=== PATIENT | female | born 1975 | race Caucasian/White ===

== ENCOUNTER 2022-07-26 18:45 | Outpatient (REF) | payer BC, SELFPAY ==
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
== END 2022-07-26 18:46 | disposition home or self-care (01) ==
LOC: HO.MRI 18:45
PROVIDERS: Visit Provider Psychiatry & Neurology Neurology
DX: M54.2 Cervicalgia (principal); R25.2 Cramp and spasm; R20.2 Paresthesia of skin
CPT/HCPCS: 72141

== ENCOUNTER 2022-08-14 07:48 | Outpatient (REF) | payer BC, SELFPAY ==
[2022-08-14 08:24] LABS: MANUAL DIFF FLAG NO
[2022-08-14 09:50] LABS: Basophils Absolute Auto 0.1 X10*3/uL (0.0-0.2); Basophils Percent Auto 1.3 % (0-2); Eosinophils Absolute Auto 0.3 X10*3/uL (0.0-0.4); Hematocrit 40.3 % (37.0-47.0); Hemoglobin 12.9 g/dl (12.0-16.0); Imm Gran Abs Auto 0.01 X10*3/uL (0.00-0.03); Imm Gran Pct Auto 0.1 % (0.0-0.4); Lymphocytes Percent Auto 28.2 % (20-40); Mean Corpuscular Hemoglobin 29.9 pg (27.0-33.0); Mean Corpuscular Volume 93.3 fL (80.0-98.0); Mean Platelet Volume 11.2 fL (9.4-12.3); Monocytes Absolute Auto 0.5 X10*3/uL (0.1-1.2); Monocytes Percent Auto 6.8 % (2-11); Neutrophils Absolute Auto 4.3 x10*3/uL (2.0-8.3); Neutrophils Percent Auto 59.6 % (45-73); Platelet Count 204 X10*3/uL (160-400); Red Blood Count 4.32 X10*6/uL (4.20-5.50); Red Cell Distribution Width 11.9 % (11.0-16.0); White Blood Count 7.2 X10*3/uL (4.8-10.8)
[2022-08-14 10:26] LABS: Erythrocyte Sedimentation Rate 2 MM/HR (0-20)
[2022-08-14 10:34] LABS: Alanine Aminotransferase 8 U/L (0-31); Albumin Level 4.2 g/dL (3.5-5.0); Alkaline Phosphatase 57 U/L (39-117); Anion Gap 13 (12-20); Aspartate Amino Transferase 18 U/L (5-31); Bilirubin Direct 0.2 mg/dL (0.0-0.5); Bilirubin Total 0.6 mg/dL (0.0-1.0); Blood Urea Nitrogen 10 mg/dL (9-16); Calcium 8.9 mg/dL (8.4-10.2); Carbon Dioxide 27 mmol/L (22-29); Chloride 103 mmol/L (96-108); Estimated Glomerular Filt Rate > 60; Glucose Random 86 mg/dL (60-115); Potassium 4.2 mmol/L (3.3-5.1); Sodium 139 mmol/L (135-145); Total Protein 6.9 g/dL (6.5-8.0)
[2022-08-14 10:41] LABS: TSH reflex Free T4 4.42 uIU/mL (0.32-4.0)
[2022-08-14 11:17] LABS: Free T4 (Free Thyroxine) 0.91 ng/dL (0.71-1.85)
[2022-08-18 14:36] LABS: CK-BB None Detected (None Detected); CK-MB 0 % (<5); CK-MM 100 % (95-100); Creatine Kinase,Total,Serum 71 U/L (29-143)
== END 2022-08-14 07:49 | disposition home or self-care (01) ==
LOC: HO.LAB 07:48
PROVIDERS: PCP Internal Medicine; Visit Provider Psychiatry & Neurology Neurology
DX: R20.2 Paresthesia of skin (principal); R25.2 Cramp and spasm
CPT/HCPCS: 36415; 80048; 80076; 82550; 82552; 84439; 84443; 85025; 85652

== ENCOUNTER 2022-10-13 12:20 | Outpatient (REF) | payer BC, SELFPAY ==
[2022-10-13 14:53] LABS: Alanine Aminotransferase 11 U/L (0-31); Albumin Level 4.2 g/dL (3.5-5.0); Alkaline Phosphatase 73 U/L (39-117); Anion Gap 9 (12-20); Aspartate Amino Transferase 17 U/L (5-31); Bilirubin Total 0.5 mg/dL (0.0-1.0); Blood Urea Nitrogen 13 mg/dL (9-16); Carbon Dioxide 31 mmol/L (22-29); Chloride 106 mmol/L (96-108); Estimated Glomerular Filt Rate > 60; Ferritin 24 ng/mL (10-250); Glucose Random 83 mg/dL (60-115); Iron 109 mcg/dL (30-160); Percent Iron Saturation 35 % (15-50); Potassium 4.1 mmol/L (3.3-5.1); Sodium 142 mmol/L (135-145); Total Iron Binding Capacity 314 mcg/dL (228-428); Total Protein 6.9 g/dL (6.5-8.0); Unsaturated Iron Binding 205 ug/dL; Vitamin D 25-OH Total 20.6 ng/mL (>30)
[2022-10-13 15:05] LABS: Folate 13.1 ng/mL (> or = 4.0); Vitamin B12 362 pg/mL (200-900)
== END 2022-10-13 12:21 | disposition home or self-care (01) ==
LOC: HO.LAB 12:20
PROVIDERS: PCP Internal Medicine; Referring Provider Internal Medicine; Visit Provider Internal Medicine
DX: R10.9 Unspecified abdominal pain (principal); R14.0 Abdominal distension (gaseous)
CPT/HCPCS: 36415; 80053; 82306; 82607; 82728; 82746; 83540

== ENCOUNTER 2022-12-08 08:12 | Outpatient (REF) | payer BC, SELFPAY ==
--- NOTE | ~2022-12-08 | US_ITS ---
EXAMINATION: US ABDOMEN COMPLETE CLINICAL INFORMATION: Nausea. COMPARISON: None TECHNIQUE: Real-time imaging of the abdominal viscera. FINDINGS: PANCREAS: Normal. ABDOMINAL AORTA: The proximal, mid, and distal segments are normal in caliber. INFERIOR VENA CAVA: Visualized portions are normal. LIVER: Normal. The liver is normal in size. The liver contour is normal. Parenchymal echogenicity is normal. No focal hepatic lesion. There is no intrahepatic biliary duct dilatation seen. GALLBLADDER: A gallbladder polyp is noted measuring 6 mm in size. The gallbladder is physiologically distended without evidence of stones, sludge, wall thickening or pericholecystic fluid. COMMON BILE DUCT: Normal in caliber measuring 0.5 cm in diameter. RIGHT KIDNEY: Normal. No hydronephrosis. No renal calculi or focal parenchymal lesions. The kidney measures 10.9 cm in maximum dimension. LEFT KIDNEY: Normal. No hydronephrosis. No renal calculi or focal parenchymal lesions. The kidney measures 10.5 cm in maximum dimension. SPLEEN: Normal. The spleen measures 9.7 cm in maximum dimension. FREE FLUID: None. US/US abdomen complete IMPRESSION: 6 mm size gallbladder polyp. In the low risk category, no follow-up is recommended for polyps of 6 mm or smaller; follow-up US at 12 months is recommended for polyps measuring 7?9 mm; follow-up US at 6, 12, 24, and 36 months is recommended for polyps measuring 10?14 mm; and surgical consultation is recommended for polyps of 15 mm or larger
== END 2022-12-08 08:13 | disposition home or self-care (01) ==
LOC: HO.US 08:12
PROVIDERS: Visit Provider Internal Medicine
DX: R10.9 Unspecified abdominal pain (principal); R11.0 Nausea
CPT/HCPCS: 76700

== ENCOUNTER 2022-12-10 08:06 | Outpatient (REF) | payer BC, SELFPAY ==
--- NOTE | ~2022-12-10 | FL_ITS ---
EXAMINATION: FL BARIUM SWALLOW CLINICAL INFORMATION: Dysphagia COMPARISON: None TECHNIQUE: Barium swallow examination is performed using fluoroscopic evaluation in addition to multiple fluoroscopic spot views. The patient is imaged both upright and prone and using both thick and thin sulfate along with effervescent granules. Barium tablet was administered. Fluoroscopy time: 0.7 minutes DAP: 2.8 Gycm2 Images: 47 FINDINGS: The swallowing mechanism is normal. No aspiration or penetration. Esophageal motility is normal. There is gastroesophageal reflux. No hernia is seen. No mass or stricture. FL/FL barium swallow IMPRESSION: Gastroesophageal reflux.
== END 2022-12-10 08:07 | disposition home or self-care (01) ==
LOC: HO.XRAY 08:06
PROVIDERS: PCP Internal Medicine; Visit Provider Internal Medicine
DX: R13.10 Dysphagia, unspecified (principal)
CPT/HCPCS: 74220

== ENCOUNTER 2023-04-28 06:11 | Day surgery (SDC) | payer BC, SELFPAY ==
[2023-04-25 09:41] VITALS: BMI 24.9
[2023-04-28 06:23] VITALS: BP 115/76; PULSE 74; RESP 16; TEMP 36.4; O2SAT 96; BMI 25.9
--- NOTE | 2023-04-28 07:43 | MHC.SHP ---
Pre-Procedural Eval Section A Date of Service: 04/28/23 Section B Chief Complaint: Dysphagia, abd pain and distension Details of Present Illness: Reports resolution of dysphagia since discontinuing gabapentin. Still has intermittent postprandial epigastric pain. PMH: Anxiety Depression Fibromyalgia Frequent headaches Hypothyroidism Neck pain Family History Father High blood pressure Mother Cancer Heart disease Relevant Family History (Specify if Yes): No Relevant Social History: None Present Medications: see Short Stay Collaborative assessment Allergies: Allergies Allergy/AdvReac Type Severity Reaction Status Date / Time No Known Allergies Allergy Verified 10/13/22 12:37 Review of Systems Review of Systems Comment: 10 point ROS negative Exam Exam Comment: Gen appear: NAD HEENT: nonicteric CVS: S1 S2 Chest: CTA ABd: soft, NT, ND Ext: no edema Neuro A/Ox3 Plan Diagnosis/Plan: Unchanged I have reviewed the history and physical and performed a pertinent physical examination on my patient. No changes have occurred unless specified. Time Spent With Patient Time: Total time managing care of this patient today ____ minutes.
--- NOTE | 2023-04-28 07:46 | W.PM.OPN ---
Operative Note Operative Note Date of Service: 04/28/23 Narrative: Procedure:?Esophagogastroduodenoscopy and colonoscopy Endoscopist:?Marian Alcazar MD Indication:?Abd pain, CRC screening Anesthesia Provider:?Dr Arabella Aguayo Anesthesia Type:?MAC Instrument:?Olympus GIF-H190, PCF-190L EGD Procedure:?? The procedure, indications, preparation and potential complications were reviewed with the patient, who indicated understanding and gave written informed consent to proceed. A administrative support specialist helped with the encounter. A physical exam was performed. The endoscope was introduced through the mouth, and advanced to the second part of duodenum. The mucosa was carefully examined on slow withdrawal of the endoscope. The patient tolerated the procedure well. There were no immediate complications.? EGD Findings:? Esophagus:? Normal mucosa noted in the entire esophagus. The Z line was at 40 cm.? Stomach:? Normal gastric mucosa. Retroflexion performed in the fundus. Random cold forceps biopsies were taken to rule out H pylori. Duodenum:? Normal duodenal mucosa to the extent visualised. Cold forceps biopsies were taken from the duodenal bulb and second portion of the duodenum to rule out celiac sprue. Colonoscopy Procedure:? The patient was then turned for the colonoscopy. A digital rectal exam was performed which was abnormal for external hemorrhoids.? A distal attachment cap was affixed to the tip of the scope and the colonoscope was then inserted through the anus and advanced through the colon to the hepatic flexure.? Mucosa was carefully examined under high definition white light as the instrument was slowly withdrawn in a retrograde panoramic fashion. Retroflexion was performed in rectum. The procedure was not difficult. There were no immediate obvious complications. The quality of the prep was BBPS: 0+1+2 = inadequate Limitations: Poor prep Findings: Mucosa: Fecal sediment in the right side of the colon precluded complete visualisation despite extensive flushing and suctioning for 15 minutes. Descending, sigmoid colon and rectum mucosa was within normal limits. Protruding lesions: Medium internal hemorrhoids without stigmata of recent bleeding. Impression: 1. Normal esophagus 2. Normal stomach (biopsy) 3. Normal duodenum (biopsy) 4. Poor prep 5. Internal and external hemorrhoids Recommendations:?? Follow biopsy results, office will call or send a letter within 7-10 days.? Repeat colonoscopy within 6-12 months due to poor prep Findings were reviewed with the patient.
[2023-04-28 08:25] VITALS: BP 110/89; PULSE 67; RESP 17; TEMP 36.3; O2SAT 100
[2023-04-28 08:40] VITALS: BP 122/76; PULSE 73; RESP 18; TEMP 37.1; O2SAT 99
--- NOTE | 2023-04-28 13:24 | HO.ANESPROP2 ---
[facility] Active Problems Active Problems: All Active Problems (Updated 10/14/22 @ 13:54 by Marian Alcazar MD) Paresthesias (Acute) Muscle cramps (Acute) Dysphagia (Acute) Nausea (Acute) Abdominal cramping (Acute) Bloating (Acute) Colon cancer screening (Acute) Neck pain (Acute) Depression (Acute) Anxiety (Acute) Hypothyroidism (Acute) Fibromyalgia (Acute) Past Medical History Medical History (Updated 10/14/22 @ 13:54 by Marian Alcazar MD) Anxiety Depression Fibromyalgia Frequent headaches Hypothyroidism Neck pain Family History Family History Father High blood pressure Mother Cancer Heart disease Family history of problems with anesthesia: No Surgical History Surgical History (Updated 04/25/23 @ 09:40 by Ana Welsh RN) Surgical history unknown History of Problems with Anesthesia: No Social History Social History Household Members: Spouse and Children Housing: House Alcohol intake: former Patient Tobacco Use Status: Former Tobacco user Tobacco use type: Cigarette Meds Allergies Allergy/AdvReac Type Severity Reaction Status Date / Time No Known Allergies Allergy Verified 10/13/22 12:37 Home Medications Medication Instructions Recorded Confirmed Last Taken Type levothyroxine 13 mcg capsule 13 mcg PO DAILY 06/08/22 04/25/23 Unknown History paroxetine HCl 25 mg 25 mg PO DAILY 06/08/22 08/17/22 Unknown History tablet,extended release 24 hr (Paxil CR) progesterone micronized 100 mg 100 mg PO QAM 06/08/22 04/25/23 Unknown History capsule paroxetine HCl 40 mg tablet 40 mg PO QAM 04/25/23 04/25/23 Unknown History Exam Exam Date and Time: April 28, 2023 1324 Height,Weight and Vital Signs: Height 5 ft 5.5 in Weight 71.668 kg Last Vital Signs Temp 98.7 F 04/28/23 08:40 Pulse 73 04/28/23 08:40 Resp 18 04/28/23 08:40 BP 122/76 04/28/23 08:40 Pulse Ox 99 04/28/23 08:40 O2 Del Method Room Air 04/28/23 08:40 Airway Mallampati Class: I TM Dist: >3cm Neck ROM: Full Loose/Missing/Broken Teeth: No Heart: rr Lungs: cta Assessment and Plan Assessment Anesthesia Assessment: Anesthesia Plan Discussed and Chart Reviewed Final Anesthetic Review Family History of Problems with Anesthesia: No History of Problems with Anesthesia: No NPO: Yes ASA Class: II Final Preanesthetic Review: No Changes in Pt Med Stat, Meds/Allgs Chart Reviewed, Consent Obtained/Reviewed and Anes Risks/Benef Reviewed Patient Risk: Low Procedure Risk: Low Anesthetic Plan Anesthetic Plan: MAC: Disposition: Standard PACU
== END 2023-04-28 09:20 | disposition home or self-care (01) ==
PROVIDERS: PCP Internal Medicine; Visit Provider Internal Medicine
PROC: (CPT 45378; principal; 2023-04-28 07:30)
DX: Z12.11 Encounter for screening for malignant neoplasm of colon (principal); K64.4 Residual hemorrhoidal skin tags; K64.8 Other hemorrhoids; R10.9 Unspecified abdominal pain; R13.10 Dysphagia, unspecified; G35 Multiple sclerosis; Z53.8 Procedure and treatment not carried out for other reasons
CPT/HCPCS: 45378; 43239; 88305; 88342

== ENCOUNTER 2023-05-16 09:46 | Outpatient (AMB) | payer BC, SELFPAY ==
[2023-05-16 09:51] VITALS: BP 114/74; PULSE 69; BMI 26.7
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
== END 2023-05-16 10:30 | disposition home or self-care (01) ==
PROVIDERS: PCP Internal Medicine; Visit Provider Internal Medicine
DX: R11.0 Nausea (principal); R14.0 Abdominal distension (gaseous); Z12.11 Encounter for screening for malignant neoplasm of colon; K30 Functional dyspepsia
CPT/HCPCS: 99214

== ENCOUNTER → 2023-05-16 09:46 | Outpatient (BNVA) | payer BC, SELFPAY | PROVIDERS: PCP Internal Medicine; Visit Provider Internal Medicine ==

== ENCOUNTER 2024-01-04 14:03 | Outpatient (AMB) | payer BC, SELFPAY ==
--- NOTE | 2024-01-04 14:13 | A.OFFVIS_ITS ---
Intake Vital Signs 01/04/24 14:16 Height 5 ft 5.5 in Weight 156 lb 8.451 oz BMI 25.6 BP 134/71 Blood Pressure Location Lt brachial Position Sitting Pulse 66 Intake Visit Reasons: follow up Intake Note: Santana presents in the office as a follow up. CC: She states that she is not having any new concerns at this time. She states that she does believe that she has IBS. Allergies No Known Allergies Allergy (Verified 01/04/24 14:16) HPI HPI Comments History of Present Illness Details This is a 47-year-old female who is currently getting investigated for multiple sclerosis to Neurology, who has been referred to our office for gastrointestinal complaints as below. 09/23/23: Patient reports that for the past 6 months, she has had a sensation of food getting stuck in her mid chest with frequent regurgitation. Notices more with certain textures such as raw fruits and vegetables, meat. Does not notice it as much with soft foods such as cereal. No room issues with liquids. Denies any unintentional weight loss with this. This is also associated with abdominal cramping and bloating. Bloating and cramping improves with passing flatus or belching. Abdominal cramping is described as twisting of upper abdomen. Pain, nausea and regurgitation as worse with food intake. Patient does not wake up with the symptoms, but develops them along the day. Bowel movements are regular, albeit has frequent constipation now, compared to before. Former smoker. Quit alcohol more than 20 years ago. No NSAID use. Family history: Maternal grandfather had stomach cancer and colon cancer at 60s. 04/28/23: EGD/colo: 1. Normal esophagus 2. Normal stomach (biopsy) 3. Normal duodenum (biopsy) 4. Poor prep 5. Internal and external hemorrhoids Recommendations:?? * Follow biopsy results, office will call or send a letter within 7-10 days.? * Repeat colonoscopy within 6-12 months due to poor prep Path: A.? Duodenum, biopsy:? Duodenal mucosa within normal limits; fragment of poorly preserved gastric tissue. B.? Stomach, random, biopsy:? Antral-type and oxyntic mucosa with mild chronic inactive inflammation; no Helicobacter organisms seen. 05/16/23: Reports resolution of swallowing difficulty with discontinuing gabapentin however continues to have feeling of early fullness and bloating after meals. Has epigastric discomfort that is not quite like heartburn and has not improved with omeprazole or tums either. Reports undergoing a very stressful time these last few months due to legal issues at school. Has not been able to function as she used to due to high leve ls of stress and anxiety. On Paroxetine through her PCP and seeing a therapist. Also scheduled to see a psychiatrist soon. 01/04/24: Here for follow up. In a much better headspace now since the start of this year. 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 IBS sx are there but able to cope better. GERD better with omeprazole. Repeat colo pending. [facility] Medical History Frequent headaches Neck pain Depression Anxiety Hypothyroidism Fibromyalgia Surgical History Surgical history unknown Family History Father High blood pressure Mother Cancer Heart disease Social History Household Members: Spouse and Children Housing: House Alcohol intake: former Patient Tobacco Use Status: Former Tobacco user Tobacco use type: Cigarette Review of Systems Const All systems reviewed & are unremarkable except as noted in HPI and below Physical Exam Vital Signs: Last Vital Signs Pulse 66 01/04/24 14:16 BP 134/71 01/04/24 14:16 BMI result Body Mass Index 25.6 NAD Nonicteric Speaking in full sentences ABd nondistended A/Ox3 normal gait Assessment & Plan Assessment & Plan (1) Nausea: Code(s): R11.0 - Nausea (2) Bloating: Code(s): R14.0 - Abdominal distension (gaseous) (3) Colon cancer screening: Code(s): Z12.11 - Encounter for screening for malignant neoplasm of colon (4) Functional dyspepsia: Code(s): K30 - Functional dyspepsia Plan IBS and functional dyspepsia much improved since better stress and anxiety management. Most of the days are sx free. Cont to see therapist. For colorectal cancer screening, due to poor prep, needs to be rebooked. Pt willing to mary this today. Split PEG prep prescribed and handout provided as well. Follow up after colo. Medications: New peg 3350-electrolytes 236-22.74-6.74 -5.86 gram (Golytely) as per split prep instructions, until fecal effluent is clear 240 mL PO Q10M 4,000 mL 0RF colonoscopy Coding Level of Care Code Est Pt Level 4 (42878) Diagnoses Nausea R11.0 Bloating R14.0 Colon cancer screening Z12.11 Functional dyspepsia K30
[2024-01-04 14:16] VITALS: BP 134/71; PULSE 66; BMI 25.6
== END 2024-01-04 14:38 | disposition home or self-care (01) ==
PROVIDERS: PCP Internal Medicine; Visit Provider Internal Medicine
DX: R11.0 Nausea (principal); R14.0 Abdominal distension (gaseous); Z12.11 Encounter for screening for malignant neoplasm of colon; K30 Functional dyspepsia
CPT/HCPCS: 99214

== ENCOUNTER → 2024-01-04 14:03 | Outpatient (BNVA) | payer BC, SELFPAY | PROVIDERS: PCP Internal Medicine; Visit Provider Internal Medicine ==

== ENCOUNTER 2024-07-03 06:33 | Day surgery (SDC) | payer BC, SELFPAY ==
[2024-06-29 07:11] VITALS: BMI 25.6
--- NOTE | 2024-07-02 09:15 | P.CONAN_ITS ---
HPI - Anesthesia Eval Consult details Narrative: 49yo F for Colonoscopy PMFSH Active Problems Active Problems: All Active Problems Functional dyspepsia (Acute) Paresthesias (Acute) Muscle cramps (Acute) Dysphagia (Acute) Nausea (Acute) Abdominal cramping (Acute) Bloating (Acute) Colon cancer screening (Acute) Neck pain (Acute) Depression (Acute) Anxiety (Acute) Hypothyroidism (Acute) Fibromyalgia (Acute) Past Medical History Medical History Frequent headaches Neck pain Depression Anxiety Hypothyroidism Fibromyalgia Family History Family History Father High blood pressure Mother Cancer Heart disease Family history of problems with anesthesia: No Surgical History Surgical History Hx of tonsillectomy History of surgical removal of pilonidal cyst History of dental surgery H/O section H/O colonoscopy History of Problems with Anesthesia: No Social History Social History Household Members: Spouse and Children Housing: House Are you a primary child care centre director to a significant other at home: No Do you presently have visiting nurse or other home services: No Alcohol intake: former Patient Tobacco Use Status: Former Tobacco user Tobacco use type: Cigarette Years Smoked: 25 Smoked in Last 30 Days: No Use of substances other than those prescribed or required for medical reasons: Yes Substance Use Frequency: Daily Have you been hit, kicked, punched, or otherwise hurt by someone within the past year? If so, by whom?: No Are you DNR?: No Advance Directives: No Advance Directives Information Provided: Yes Recently lost weight without trying: No How much weight loss: Not applicable Eating poorly because of decreased appetite: No Nutrition screen score: 0 Nutrition Risks: No Nutritional Risk Patient : No : No Poor oral hygiene: No Meds Allergies Allergy/AdvReac Type Severity Reaction Status Date / Time No Known Allergies Allergy Verified 07/03/24 06:49 Home Medications ?Medication ?Instructions ?Recorded ?Confirmed ?Last Taken ?Type paroxetine HCl 40 mg tablet 40 mg PO QAM 04/25/23 07/03/24 Unknown History ibuprofen 600 mg tablet 200 mg PO NEEDED 01/04/24 07/03/24 06/26/24 History lorazepam 0.5 mg tablet 0.5 mg PO DAILY 01/04/24 07/03/24 06/19/24 History omeprazole magnesium 20 mg 20 mg PO DAILY 01/04/24 07/03/24 Unknown History capsule,delayed release paroxetine HCl 10 mg tablet 10 mg PO DAILY 01/04/24 07/03/24 Unknown History Exam Height,Weight and Vital Signs: Height 5 ft 5.5 in Weight 70.76 kg Assessment and Plan Assessment Anesthesia Assessment: Chart Reviewed Final Anesthetic Review Family History of Problems with Anesthesia: No History of Problems with Anesthesia: No
[2024-07-03 07:12] VITALS: BP 125/55; PULSE 61; RESP 16; TEMP 36.4; O2SAT 97; BMI 26.2
--- NOTE | 2024-07-03 07:23 | MHC.SHP ---
Pre-Procedural Eval Section A - 24 Hr Update-Section A only Date of Service: 07/03/24 Section B - Complete if H&P > 30 days Chief Complaint: Colon cancer screening Relevant Family History (Specify if Yes): Yes Relevant Social History: Tobacco Use (Former smoker) Present Medications: see Short Stay Collaborative assessment Medical History: Significant History (Frequent headaches Neck pain Depression Anxiety Hypothyroidism Fibromyalgia) History of Previous Operations: Relevant previous surgery/procedure and date(s) (History of , history of colonoscopy) Allergies: Allergies Allergy/AdvReac Type Severity Reaction Status Date / Time No Known Allergies Allergy Verified 07/03/24 06:49 Review of Systems Sugical H&P ROS: Negative: Constitution, Cardiovascular, Respiratory and Gastrointestinal Exam Surgical H&P Exam: Normal: Heart, Normal: Lungs, Normal: Extremities and Normal: Abdomen Plan Diagnosis/Plan: Unchanged I have reviewed the history and physical and performed a pertinent physical examination on my patient. No changes have occurred unless specified. Time Spent With Patient Time: Total time managing care of this patient today ____ minutes.
[2024-07-03] MEDS: Lactated Ringers 1,000 ML 100 ML IVCONT (07:27)
--- NOTE | 2024-07-03 07:36 | PC.NURSE ---
Patient in preop. Voiced she takes herbal supplement called hormone harmony. Ingredients list shared with Dr. Self. May proceed with procedure at this time.
--- NOTE | 2024-07-03 07:57 | P.CONAN_ITS ---
[facility] Active Problems Active Problems: All Active Problems Functional dyspepsia (Acute) Colon cancer screening (Acute) Bloating (Acute) Abdominal cramping (Acute) Nausea (Acute) Dysphagia (Acute) Muscle cramps (Acute) Paresthesias (Acute) Neck pain (Acute) Depression (Acute) Anxiety (Acute) Hypothyroidism (Acute) Fibromyalgia (Acute) Past Medical History Medical History Frequent headaches Neck pain Depression Anxiety Hypothyroidism Fibromyalgia Functional capacity: independent ambulation Patient : No Family History Family History Father High blood pressure Mother Cancer Heart disease Family history of problems with anesthesia: No Surgical History Surgical History Hx of tonsillectomy History of surgical removal of pilonidal cyst History of dental surgery H/O section H/O colonoscopy History of Problems with Anesthesia: No Social History Social History Household Members: Spouse and Children Housing: House Are you a primary direct care supervisor to a significant other at home: No Do you presently have visiting nurse or other home services: No Alcohol intake: former Patient Tobacco Use Status: Former Tobacco user Tobacco use type: Cigarette Years Smoked: 25 Smoked in Last 30 Days: No Use of substances other than those prescribed or required for medical reasons: Yes Substance Use Frequency: Daily Have you been hit, kicked, punched, or otherwise hurt by someone within the past year? If so, by whom?: No Are you DNR?: No Advance Directives: No Advance Directives Information Provided: Yes Recently lost weight without trying: No How much weight loss: Not applicable Eating poorly because of decreased appetite: No Nutrition screen score: 0 Nutrition Risks: No Nutritional Risk Patient : No : No Poor oral hygiene: No Meds Allergies Allergy/AdvReac Type Severity Reaction Status Date / Time No Known Allergies Allergy Verified 07/03/24 06:49 Active Medications: Current Medications Lactated Ringer's (Lr) 1,000 mls @ 100 mls/hr IVCONT .Q10H NURYS Last Admin: 07/03/24 07:27 Dose: 100 mls/hr Home Medications ?Medication ?Instructions ?Recorded ?Confirmed ?Last Taken ?Type paroxetine HCl 40 mg tablet 40 mg PO QAM 04/25/23 07/03/24 Unknown History ibuprofen 600 mg tablet 200 mg PO NEEDED 01/04/24 07/03/24 06/26/24 History lorazepam 0.5 mg tablet 0.5 mg PO DAILY 01/04/24 07/03/24 06/19/24 History omeprazole magnesium 20 mg 20 mg PO DAILY 01/04/24 07/03/24 Unknown History capsule,delayed release paroxetine HCl 10 mg tablet 10 mg PO DAILY 01/04/24 07/03/24 Unknown History Exam Height,Weight and Vital Signs: Height 5 ft 5.5 in Weight 72.393 kg Last Vital Signs Temp 97.6 F 07/03/24 07:12 Pulse 61 07/03/24 07:12 Resp 16 07/03/24 07:12 BP 125/55 L 07/03/24 07:12 Pulse Ox 97 07/03/24 07:12 O2 Del Method Room Air 07/03/24 07:12 Airway Mallampati Class: II TM Dist: >3cm Neck ROM: Full Heart: RRR Lungs: CTA Assessment and Plan Assessment Anesthesia Assessment: Anesthesia Plan Discussed, Smoking Cess. Discussed and Chart Reviewed Final Anesthetic Review Family History of Problems with Anesthesia: No History of Problems with Anesthesia: No NPO: Yes ASA Class: II Final Preanesthetic Review: Meds/Allgs Chart Reviewed, Consent Obtained/Reviewed and Anes Risks/Benef Reviewed Patient Risk: Low Procedure Risk: Low Anesthetic Plan Anesthetic Plan: MAC: Disposition: Standard PACU
--- NOTE | 2024-07-03 08:24 | P.OPN-COLO_ITS ---
Colonoscopy Operative Note Operative Note Date of Service: 07/03/24 Narrative: COLONOSCOPY TILL CECUM WITH BIOPSIES Pre-op diagnosis: Colon cancer screening. Post-op diagnosis:? Colon polyps, Diverticulosis, hemorrhoids Endoscopist:? Jacob Self MD Anesthesia:?MAC Consent: Indications for the procedure and potential complications of bleeding, perforation, reaction to medications and missed diagnosis were discussed with the patient and informed consent was obtained. Instrument: Olympus PCF H 190 L variable stiffness pediatric colonoscope Monitoring: Vital signs and clinical assessment, intermittent blood pressure monitoring, continuous EKG monitoring, Pulse oximetry and Carbon Dioxide monitoring were done throughout the procedure. Please see anesthesia flowsheet. Colon withdrawl time was 18 minutes. Procedure: The patient was placed in the left lateral decubitis position and pre-procedure medications were administered. After a digital rectal examination of the ano-rectum, the video colonoscope was inserted into the rectum and advanced through the colon to the cecum. The colonoscope was slowly withdrawn in a retrograde panoramic fashion and the colon mucosa was carefully examined including a retroflexed view of the rectum. Findings and interventions are described below. Procedure Difficulty: without difficulty Findings: Terminal Ileum: Not evaluated Cecum: Partially evaluated due to undigested vegetable matter which could not be suctioned Ascending Colon: Normal Transverse Colon: Normal Descending Colon: Normal Sigmoid Colon: Mild diverticulosis Rectum: A few 3-5 mm diminutive appearing polyps - two were removed with a cold biopsy. Ano-rectum: Small internal hemorrhoids Colon preparation: Good after copious irrigation and fair in the cecum and some areas in the sigmoid colon. [place] Bowel Preparation Scale Right colon; 2/3 Transverse colon: 2 Left colon; 2/3 (0 = Unprepared colon segment with mucosa not seen due to solid stool that cannot be cleared. 1 = Portion of mucosa of the colon segment seen, but other areas of the colon segment not well seen due to staining, residual stool and/or opaque liquid. 2 = Minor amount of residual staining, small fragments of stool and/or opaque liquid, but mucosa of colon segment seen well. 3 = Entire mucosa of colon segment seen well with no residual staining, small fragments of stool or opaque liquid) Impression and Post Procedure Diagnosis: Colonoscopy Findings: Two small polyps were removed (hyperplastic on bx) Mild diverticulosis seen in the sigmoid colon small hemorrhoids on retroflexed exam. Plan: Pt has a FU appointment on 07/16/[address] Ottoniel Repeat Colonoscopy in 2 years if polyps are adenomatous and due to fair prep or consider stool cologuard test (Consider Dulcolax 10 mg daily starting 5 days prior to next colon appt) Above findings were reviewed with the patient and relevant handouts were given and the discharge area.
[2024-07-03 08:28] VITALS: BP 118/61; PULSE 69; RESP 16; TEMP 36.1; O2SAT 98
--- NOTE | 2024-07-03 08:40 | HO.POSTANES ---
Post Anesthesia Evaluation Post Anesthesia Evaluation Date of Service: 07/03/24 Vital Signs: Vital Signs Temp Pulse Resp BP Pulse Ox O2 Del Method 07/03/24 08:28 97 F 69 16 118/61 98 Room Air 07/03/24 07:12 97.6 F 61 16 125/55 L 97 Room Air Anesthesia: Monitored Mental Status: Awake Pain Control: Satisfactory Nausea/Vomiting: None Hydration: Adequate Anesthesia-Related Issues: No Anes. Related Issues
[2024-07-03 08:43] VITALS: BP 109/56; PULSE 67; RESP 16; TEMP 36.1; O2SAT 99
[2024-07-03 08:58] VITALS: BP 118/56; PULSE 60; RESP 16; TEMP 36.1; O2SAT 99
== END 2024-07-03 09:15 | disposition home or self-care (01) ==
PROVIDERS: PCP Internal Medicine; Visit Provider Internal Medicine Gastroenterology
PROC: 0DJD8ZZ Inspection of Lower Intestinal Tract, Via Natural or Artificial Opening Endoscopic (ICD-10-PCS; CPT 45378; principal; 2024-07-03 07:30)
DX: Z12.11 Encounter for screening for malignant neoplasm of colon (principal); K62.1 Rectal polyp; K57.30 Diverticulosis of large intestine without perforation or abscess without bleeding; K64.8 Other hemorrhoids; K30 Functional dyspepsia; M79.7 Fibromyalgia; E03.9 Hypothyroidism, unspecified; R51.9 Headache, unspecified; M54.2 Cervicalgia; F32.A Depression, unspecified; F41.9 Anxiety disorder, unspecified; Z87.891 Personal history of nicotine dependence; Z79.899 Other long term (current) drug therapy
CPT/HCPCS: 45380; 88305; J2704

== ENCOUNTER → 2024-07-03 06:33 | Outpatient (BNV) | payer BC, SELFPAY | PROVIDERS: PCP Internal Medicine; Visit Provider Internal Medicine Gastroenterology | DX: Z12.11 Encounter for screening for malignant neoplasm of colon (principal); D12.8 Benign neoplasm of rectum; K64.8 Other hemorrhoids; K57.30 Diverticulosis of large intestine without perforation or abscess without bleeding | CPT/HCPCS: 45380 ==

== ENCOUNTER 2024-07-16 08:53 | Outpatient (AMB) | payer BC, SELFPAY ==
--- NOTE | 2024-07-16 08:54 | MHC.OFFVIS ---
Vital Signs 07/16/24 08:55 Height 5 ft 5.5 in Weight 160 lb BMI 26.2 BP 117/66 Blood Pressure Location Lt brachial Position Sitting Pulse 69 Intake Visit Reasons: S/p colon Intake Note: Santana presents in the office as a follow up colonoscopy. Patient cc: Nauseas, abdominal pain/bloating, acid reflex with vomiting, and IBS symptoms. Land Lease Information Clerk Required: No Accompanied by: Self / Same As Patient Allergies No Known Allergies Allergy (Verified 07/16/24 09:07) HPI Comments Details: This is a 47-year-old female who is currently getting investigated for multiple sclerosis to Neurology, who has been referred to our office for gastrointestinal complaints as below. 09/23/23: Patient reports that for the past 6 months, she has had a sensation of food getting stuck in her mid chest with frequent regurgitation. Notices more with certain textures such as raw fruits and vegetables, meat. Does not notice it as much with soft foods such as cereal. No room issues with liquids. Denies any unintentional weight loss with this. This is also associated with abdominal cramping and bloating. Bloating and cramping improves with passing flatus or belching. Abdominal cramping is described as twisting of upper abdomen. Pain, nausea and regurgitation as worse with food intake. Patient does not wake up with the symptoms, but develops them along the day. Bowel movements are regular, albeit has frequent constipation now, compared to before. Former smoker. Quit alcohol more than 20 years ago. No NSAID use. Family history: Maternal grandfather had stomach cancer and colon cancer at 60s. 04/28/23: EGD/colo: 1. Normal esophagus 2. Normal stomach (biopsy) 3. Normal duodenum (biopsy) 4. Poor prep 5. Internal and external hemorrhoids Recommendations:?? Follow biopsy results, office will call or send a letter within 7-10 days.? Repeat colonoscopy within 6-12 months due to poor prep Path: A.? Duodenum, biopsy:? Duodenal mucosa within normal limits; fragment of poorly preserved gastric tissue. B.? Stomach, random, biopsy:? Antral-type and oxyntic mucosa with mild chronic inactive inflammation; no Helicobacter organisms seen. 05/16/23: Reports resolution of swallowing difficulty with discontinuing gabapentin however continues to have feeling of early fullness and bloating after meals. Has epigastric discomfort that is not quite like heartburn and has not improved with omeprazole or tums either. Reports undergoing a very stressful time these last few months due to legal issues at school. Has not been able to function as she used to due to high levels of stress and anxiety. On Paroxetine through her PCP and seeing a therapist. Also scheduled to see a psychiatrist soon. 01/04/24: Here for follow up. In a much better headspace now since the start of this year. 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 IBS sx are there but able to cope better. GERD better with omeprazole. Repeat colo pending. 07/03/24: [place] (Dr Self): Fair prep. x2 HP. Mild sigmoid diverticulosis. 07/16/24: Here for post colo follow up. Doing well. Occasionally has LLQ cramping and wonders ? diverticulitis flare. Likes to avoid going to the hospital so no documented CT scans during these episodes. Pt also reports once every 1-2 weeks sudden abd cramping with nausea and retrosternal burning with occ regurgitation. No overt GERD on EGD or barium swallow. [facility] Medical History Frequent headaches Neck pain Depression Anxiety Hypothyroidism Fibromyalgia Surgical History (Updated 07/16/24 @ 08:54 by Tamiko Antonio) Hx of tonsillectomy History of surgical removal of pilonidal cyst History of dental surgery H/O section H/O colonoscopy Family History Father High blood pressure Mother Cancer Heart disease Social History Household Members: Spouse and Children Housing: House Are you a primary administrator health care facility to a significant other at home: No Do you presently have visiting nurse or other home services: No Alcohol intake: former Patient Tobacco Use Status: Former Tobacco user Tobacco use type: Cigarette Years Smoked: 25 Review of Systems Const All systems reviewed & are unremarkable except as noted in HPI and below Physical Exam Vital Signs: Last Vital Signs Pulse 69 07/16/24 08:55 BP 117/66 07/16/24 08:55 BMI result Body Mass Index 26.2 No apparent distress Nonicteric Abdomen soft, nondistended Alert and oriented x3, normal gait Assessment & Plan Assessment & Plan (1) Functional dyspepsia: Code(s): K30 - Functional dyspepsia Category: Medical (2) Colon cancer screening: Code(s): Z12.11 - Encounter for screening for malignant neoplasm of colon Category: Medical (3) Bloating: Code(s): R14.0 - Abdominal distension (gaseous) Category: Medical (4) Nausea: Code(s): R11.0 - Nausea Category: Medical (5) Abdominal cramping: Code(s): R10.9 - Unspecified abdominal pain Category: Medical Plan 1. LLQ cramping: Diffuclt to ascertain if part of IBS/DGBI vs diverticulitis in retrospect. Advised pt to call us if has a recurrent episode so timely imaging can be obtained. 2. Abd bloating/nausea: Again appears to be under the umbrella of DGBI - likely dyspepsia. No evidence of GERD on testing so far. Will trial mylanta BID-TID prn for symptomatic relief 3. CRC screening: Fair prep on most recent colo. Next colo due fall 2025. Reminder set. Follow up in a year Medications: New calcium carb-mag hydrox-simeth 1,200 mg-270 mg -80 mg/10 mL (Mylanta Coat-Cool) 10 mL PO TID 30 days PRN 355 mL 1RF dyspepsia Coding Level of Care Code Est Pt Level 4 (77054) Diagnoses Functional dyspepsia K30 Colon cancer screening Z12.11 Bloating R14.0 Nausea R11.0 Abdominal cramping R10.9
[2024-07-16 08:55] VITALS: BP 117/66; PULSE 69; BMI 26.2
== END 2024-07-16 09:38 | disposition home or self-care (01) ==
PROVIDERS: PCP Internal Medicine; Visit Provider Internal Medicine
DX: K30 Functional dyspepsia (principal); Z12.11 Encounter for screening for malignant neoplasm of colon; R14.0 Abdominal distension (gaseous); R11.0 Nausea; R10.9 Unspecified abdominal pain
CPT/HCPCS: 99214

== ENCOUNTER → 2024-07-16 08:53 | Outpatient (BNVA) | payer BC, SELFPAY | PROVIDERS: PCP Internal Medicine; Visit Provider Internal Medicine ==